=== PATIENT | female | born 1980 | race Caucasian/White ===

== ENCOUNTER 2018-09-21 20:01 | Emergency (ER) | payer OTHER ==
[~2018-09-21] VITALS: Ht 154.9 cm; Wt 53.5 kg
[2018-09-21] MEDS ORDERED: FOLIC ACID1 MG (20:08)
[2018-09-22] MEDS ORDERED: ZOFRAN ODT4 MG PO (02:21)
[2018-09-22] MEDS ORDERED: PEPCID40 MG PO (02:21)
== END 2018-09-22 02:31 | disposition home or self-care (01) ==
LOC: ER 20:01
DX: O21.8 Other vomiting complicating pregnancy (principal); Z34.01 Encounter for supervision of normal first pregnancy, first trimester

== ENCOUNTER 2018-10-13 13:44 | Inpatient (IN) | payer OTHER ==
[~2018-10-13] VITALS: Ht 154.9 cm; Wt 48.1 kg
[~2018-10-13 13:44] MED LIST: FOLIC ACID1 MG; PEPCID40 MG PO; ZOFRAN ODT4 MG PO
== END 2018-10-16 08:50 | DRG 833 ==
LOC: OB/GYN 13:44
PROVIDERS: ADMIT Obstetrics & Gynecology
PROC: 4A1HXCZ Monitoring of Products of Conception, Cardiac Rate, External Approach (ICD-10-PCS; principal; 2018-10-13)
DX: O21.0 Mild hyperemesis gravidarum (principal); Z34.81 Encounter for supervision of other normal pregnancy, first trimester

== ENCOUNTER 2019-04-14 15:27 | Inpatient (IN) | payer OTHER ==
[~2019-04-14] VITALS: Ht 154.9 cm; Wt 60.8 kg
== END 2019-05-13 11:05 | disposition home or self-care (01) | DRG 768 ==
LOC: OB/GYN 04-21 11:15 → SURG-SUITE 05-11 11:27 → LDR 05-11 11:27 → SURG-SUITE 05-11 21:05
PROVIDERS: ADMIT Obstetrics & Gynecology
PROC: 10E0XZZ Delivery of Products of Conception, External Approach (ICD-10-PCS; principal; 2019-05-11)
PROC: 0DQR0ZZ Repair Anal Sphincter, Open Approach (ICD-10-PCS; 2019-05-11)
PROC: 0W8NXZZ Division of Female Perineum, External Approach (ICD-10-PCS; 2019-05-11)
PROC: 4A1HXCZ Monitoring of Products of Conception, Cardiac Rate, External Approach (ICD-10-PCS; 2019-05-11)
PROC: 4A033R1 Measurement of Arterial Saturation, Peripheral, Percutaneous Approach (ICD-10-PCS; 2019-05-11)
DX: O70.21 Third degree perineal laceration during delivery, IIIa (principal); Z37.0 Single live birth; Z3A.40 40 weeks gestation of pregnancy; Z22.330 Carrier of Group B streptococcus

== ENCOUNTER 2019-05-05 16:09 | Outpatient (CLI) | payer OTHER | END 2019-05-05 17:23 | disposition home or self-care (01) | LOC: NST 16:09 | DX: Z34.83 Encounter for supervision of other normal pregnancy, third trimester (principal) ==

== ENCOUNTER 2021-07-25 10:15 | Inpatient (IN) | payer OTHER ==
[~2021-07-25] VITALS: Ht 152.4 cm; Wt 60.8 kg
[2021-07-29] MEDS ORDERED: PRENATAL TABLE1 EAC4 PO (02:41)
== END 2021-07-31 13:14 | disposition home or self-care (01) | DRG 807 ==
LOC: LDR 07-29 01:01 → OB/GYN 07-29 11:44 → SURH 08-06 10:15
PROVIDERS: ADMIT Obstetrics & Gynecology; ATTEND Obstetrics & Gynecology
PROC: 10E0XZZ Delivery of Products of Conception, External Approach (ICD-10-PCS; principal; 2021-07-29)
PROC: 0HQ9XZZ Repair Perineum Skin, External Approach (ICD-10-PCS; 2021-07-29)
PROC: 4A1HXFZ Monitoring of Products of Conception, Cardiac Rhythm, External Approach (ICD-10-PCS; 2021-07-29)
DX: O70.0 First degree perineal laceration during delivery (principal); Z37.0 Single live birth; Z3A.38 38 weeks gestation of pregnancy

== ENCOUNTER 2023-07-03 08:21 | Emergency (ER) | payer OTHER ==
[~2023-07-03] VITALS: Ht 154.9 cm; Wt 52.2 kg
[~2023-07-03 08:21] MED LIST changes: +PRENATAL TABLE1 EAC4 PO
== END 2023-07-03 09:53 | disposition home or self-care (01) ==
LOC: ER 08:21
DX: H53.8 Other visual disturbances (principal)